=== PATIENT | male | born 1950 | race Caucasian/White ===

== ENCOUNTER → 2016-12-07 | Outpatient (CLI) | payer OTHER ==
[2016-12-07 09:51] LABS: Blood Urea Nitrogen 17 mg/dL (9-20); Non-African American GFR(MDRD) >60 (>60 ml/min/1.73 sqM)
--- NOTE | 2016-12-07 14:07 | MR ---
MR right brain and internal auditory canals with and without contrast HISTORY: Acoustic nerve disorder, hearing loss left ear Multiplanar multisequence and postcontrast images obtained through the brain and internal auditory ca nals following 20 cc MultiHance IV, small [id number] high-resolution images were obtained No comparisons There is no restricted diffusion. Scattered hyperintensities are present within the deep white matter on inversion recovery and T2-weighted sequences, approximately 5-10 lesions are present. Extensive s inus disease is present within the ethmoid air cells, right maxillary sinus shows air-fluid level, mu coperiosteal thickening present within the bilateral maxillary sinuses, frontal sinus. There is no he morrhage or hydrocephalus. Corpus callosum, pituitary, cervical medullary junction are normal. There is a mass in the internal auditory canal which is isointense on T1 and T2-weighted sequences, e xtensive homogenous enhancement is present on postcontrast images involving the intracanalicular port ion of the internal auditory canal extending to the cerebellopontine angle, the mass measures approxi mately 16 x 2.3 x 1.8 cm. The right cerebellopontine angle and internal auditory and general internal medicine physician y canal are normal. 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 Sinus disease. Nonspecific white matter demyelin ation. A Yellow message has been communicated to [employer] [facility] via the [employer] system on 12/07/2016 2:04 PM, Message ID [id number].
== END | disposition home or self-care (01) ==
LOC: RADMRIMAIN 08:47
PROVIDERS: ATTEND Otolaryngology
DX: D33.3 Benign neoplasm of cranial nerves (principal)
CPT/HCPCS: 82565; 84520; 70553; A9577

== ENCOUNTER → 2018-07-06 | Outpatient (CLI) | payer MEDICARE, OTHER ==
--- NOTE | 2018-07-06 13:14 | MR ---
EXAMINATION TYPE: MR brain and iac wo/w con DATE OF EXAM: 07/06/2018 COMPARISON: Prior brain MRI 12/07/2016 HISTORY: Benign Neoplasm of Cranial Nerves TECHNIQUE: Multiplanar, multisequence images of the brain and brainstem is performed without and with IV contras t, utilizing 13 mL intravenous Gadavist . Small [id number]-[id number] high-resolution images through the inte rnal auditory canals FINDINGS: Postop changes at the level of the temporal bone on the left are noted, fluid signal presen t within the mastoid air cells on inversion recovery T2-weighted sequences. Fat signal present along the temporal bone is likely postoperative on the left. The previously identified enhancing mass at th e left cerebellopontine angle is no longer present, cerebral spinal fluid signal is noted this level, the semicircular canals and cochlea no longer seen on the left. There are normal vascular flow voids . Diffusion weighted images demonstrate no evidence of a recent infarct or other diffusion abnormalit y. There is no extra-axial fluid collection or significant interval change in white matter signal ab normality. The ventricular system and cisternal spaces are normal in size and appearance. The brain volume is age appropriate. Midline structures demonstrate normal morphology, stable partially empty sella. The craniocervical j unction appears within normal limits. Post contrast images demonstrate no abnormal enhancement. The dural venous sinuses appear patent. The visualized sinuses are remarkable for inflammatory change in the ethmoid air cells, mucosal thickening present in the maxillary sinus, renal sinus. The globes are intact. IMPRESSION: Interval surgery and additional findings above.
== END | disposition home or self-care (01) ==
LOC: RADMRIMAIN 08:15
PROVIDERS: ATTEND Physician Assistant
DX: D33.3 Benign neoplasm of cranial nerves (principal); Z98.890 Other specified postprocedural states
CPT/HCPCS: 82565; 70553; 36415; A9585

== ENCOUNTER → 2018-11-15 | Outpatient (CLI) | payer MEDICARE ==
--- NOTE | 2018-11-15 09:21 | CTL ---
EXAMINATION TYPE: CT Low Dose Lung DATE OF EXAM ORDERED: 11/15/2018 HISTORY: 68-year-old male for small history of tobacco use. Lung cancer screening CT DLP: [address] CTDI: 2.87 mGy Automated exposure control for dose reduction was used. SCREENING VISIT: Baseline COMPARISON: None TECHNIQUE: Low dose computed tomography scan was performed through the chest at 1 mm thick sections and reconstructed images in the coronal/sagittal plane. Additional coronal MIP reconstructions performed. CT DIAGNOSTIC QUALITY: Limited, but interpretable FINDINGS: Excessive malaise artifacts relating to patient body habitus. Heart normal size without pericardial effusion. Large caliber to the main right and left pulmonary arteries at 2.7 and 2.5 cm, respectively, suggesting underlying pulmonary arterial hypertension. No thoracic lymphadenopathy by CT size criteria. Mild to moderate diffuse bronchial wall thickening. Scattered centrilobular emphysema. Some focal irregular nodular thickening at 7 mm along the anterior minor fissure (axial image 155) suspected represents scarring. Otherwise, no suspicious pulmonary nodule is identified. No consolidation or effusion. Tiny hernia suggested. Visualized upper abdomen is very limited due to the degree of ileus. Bridging anterior endplate spondylosis throughout the thoracic spine with accentuated lower thoracic kyphosis. Findings suggest DISH. IMPRESSION: 1. LungRADS Category 3 (probably benign, 1-2% chance of malignancy); 7 mm irregular nodular thickening anterior right minor fissure suspected to represent scarring. 2. COPD with mild emphysema. 3. Pulmonary arterial hypertension. 4. DISH. RECOMMENDATION: 1. 6 month follow-up low-dose CT chest to reassess the right lung finding. 2. Smoking cessation. FOLLOW UP CT CHEST RECOMMENDATION: [address] LUNG RAD: Lung-Rad 3 Probably Benign MTDD
== END ==
LOC: RADCTMAIN 08:02
PROVIDERS: ATTEND Family Medicine
DX: Z12.2 Encounter for screening for malignant neoplasm of respiratory organs (principal); J43.9 Emphysema, unspecified; I27.21 Secondary pulmonary arterial hypertension; F17.210 Nicotine dependence, cigarettes, uncomplicated

== ENCOUNTER → 2021-07-20 | Outpatient (CLI) | payer MEDICARE ==
--- NOTE | 2021-07-20 11:37 | CT ---
EXAMINATION TYPE: CT angio abd aorta w/Runoff DATE OF EXAM: 07/20/2021 COMPARISON: None. HISTORY: pad. Right lower extremity pain. CT DLP: 1566 mGycm, Automated Exposure Control for Dose Reduction was Utilized. CONTRAST: CTA scan of the abdomen and pelvis with lower extremity runoff is performed without oral and with IV Contrast, patient injected with 125 mL of Isovue 370. Three-D reconstructed images are created on an independent workstation and reviewed. FINDINGS: Vascular: Moderate peripheral calcified plaque in the abdominal aorta extends into branch vessels. Th ere is a patent celiac artery and SMA without significant stenosis. Patent bilateral renal arteries w ithout significant stenosis. Patent ESTEFANÍA. Abdominal aorta is somewhat small caliber measuring 1.6 cm r eference axial image 31. Moderate to severe peripheral calcified plaque extends into the common iliac arteries bilaterally without significant stenosis. Mild peripheral calcified plaque in the external iliac arteries bilaterally without significant signal. Satisfactory bifurcation common femoral arteries bilaterally with mild peripheral plaque. There is co mplete occlusion of the proximal right superficial femoral artery abruptly beginning on axial image 9 1 with some reconstitution mid to distal segment axial image 126. There is moderate to severe mixed p laque in the proximal to mid popliteal artery without focal stenosis. Less prominent plaque below kne e joint is seen. Satisfactory bifurcation and subsequent trifurcation is present with good three-vess el flow mid leg and good two-vessel flow distal leg level. At The distal leg/ankle joint there is sub optimal opacification of the small arteries bilaterally making evaluation suboptimal from this level distally. There is mild to moderate peripheral calcified plaque along the left proximal to mid superficial femo ral artery with more prominent plaque in the distal left superficial femoral artery. There is focal 1 .6 cm aneurysm axial image 144 with anterior noncalcified plaque. Distal to this popliteal artery rony ws focal eccentric 2.7 cm thrombosed aneurysm axial image 163 without significant stenosis just proxi mal to the knee joint. Remainder of popliteal artery shows no significant plaque or stenosis. Satisfa ctory bifurcation and trifurcation. Satisfactory three-vessel flow symmetric drops it right side and good 2 vessel flow distal left buttocks symmetric opposite right side. LUNG BASES: No significant abnormality is appreciated. LIVER/GB: No significant abnormality is appreciated. PANCREAS: No significant abnormality is seen. SPLEEN: No significant abnormality is seen. ADRENALS: No significant abnormality is seen. KIDNEYS: No significant abnormality is seen. BOWEL: No significant abnormality is seen. PROSTATE/SEMINAL VESICLES: Suboptimal evaluation due to streak artifact from bilateral hip arthroplas ty. LYMPH NODES: No greater than 1cm abdominal or pelvic lymph nodes are appreciated. OSSEOUS STRUCTURES: With metallic artifact from bilateral hip arthroplasty causes streak artifact jolley iting evaluation of pelvic structures. Moderate multilevel spurring in the lumbar spine facet arthrop athy lower lumbar levels. OTHER: There is anterior subcutaneous oval 3.8 x 5.8 cm thin-walled cyst abutting the skin surface in the pelvis axial image 67. Suspect benign dermatologic etiology such as sebaceous cyst. Correlate c linically. Lower extremities: Tricompartment degenerative changes of bilateral knees greatest patellofemoral c ompartments. Mild to moderate subcutaneous edema in the bilateral lower extremities below the knees more prominent on the right side versus left side. IMPRESSION: 1. Small caliber abdominal aorta. Abrupt complete occlusion upper level of the proximal right superfi cial femoral artery with some reconstitution distal superficial femoral artery level. No significant focal stenosis passes level nearly up to ankle joint identified. Asymmetric increase subcutaneous moreno ma soft tissue swelling of the distal right lower extremity versus the opposite left side noted. 2. No significant focal stenosis in the left lower extremity arterial system. There are 2 focal aneur ysms in the distal superficial femoral and popliteal artery that are however noted.
== END | disposition home or self-care (01) ==
LOC: RADCTMAIN 08:43
PROVIDERS: ATTEND Surgery
DX: I74.3 Embolism and thrombosis of arteries of the lower extremities (principal); I72.4 Aneurysm of artery of lower extremity
CPT/HCPCS: 82565; 84520; 75635; 36415; Q9967

== ENCOUNTER 2021-12-29 11:47 | Emergency (ER) | payer MEDICARE ==
--- NOTE | 2021-12-29 13:19 | XR ---
EXAMINATION TYPE: XR tibia fibula LT DATE OF EXAM: 12/29/2021 CLINICAL HISTORY: pain TECHNIQUE: AP and lateral images of the left tibia and fibula are obtained. COMPARISON: None. FINDINGS: Virtually nondisplaced hairline fracture involving the proximal fibular diaphysis. No addit ional fractures seen within the empqc-on-soid. Proximal tibial bony protuberance may reflect an exost osis. The joint spaces appear within normal limits. 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 IMPRESSION: Nondisplaced hairline fracture proximal fibula.
[2021-12-29 13:22] VITALS: TEMP 98.9
--- NOTE | 2021-12-29 13:35 | ED ---
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 Patient fell onto his left leg from standing on the 16 last week. Has been having some pain lateral to the left knee since. Presented to urgent care for evaluation, and x-ray there was read by staff and there was concern for tib-fib fracture of the left. Was sent here for further evaluation. Patient ambulates by himself as well as with a walker at baseline. Endorses mild left ankle pain, but no sensory deficits or weakness. Still able to move the left knee. Presents for further evaluation at this time. - Related Data Allergies Allergy/AdvReac Type Severity Reaction Status Date / Time No Known Allergies Allergy Verified 12/29/21 13:22 Review of Systems ROS Statement: Those systems with pertinent positive or pertinent negative responses have been documented in the HPI. Review of Systems: CONST: Denies fever EYES: Denies blurry vision ENT: Denies nasal congestion C/V: Denies Chest pain RESP: Denies shortness of breath GI: Denies abdominal pain : Denies dysuria SKIN: Denies rash. MSK: Endorses left leg pain. NEURO: Denies headache ROS Other: All systems not noted in ROS Statement are negative. Past Medical History Past Medical History: COPD History of Any Multi-Drug Resistant Organisms: None Reported Past Surgical History: Joint Replacement Additional Past Surgical History / Comment(s): left hip repleacement 2005, right hip- 2006. acoustic neuroma tumor removed 2017, rt hip replacement- 09/2019. Past Psychological History: Depression Smoking Status: Former smoker Past Alcohol Use History: Daily Past Drug Use History: Marijuana General Exam - General Exam Comments Initial Comments: General: Appears in no acute distress. HEAD: Normal with no signs of head trauma. EYES: PERRLA, EOMI, conjunctiva normal, no discharge. ENT: Hearing grossly intact, normal oropharynx. RESPIRATORY: Clear breath sounds bilaterally. No wheezes, rales, or rhonchi. C/V: Regular rate and rhythm. S1 and S2 auscultated, no edema, peripheral pulses 2+ and intact throughout ABD: Abd is soft, nontender, nondistended EXT: Normal range of motion, no obvious deformity. Tenderness to palpation over the proximal aspect of the left fibula. Normal range of motion of the left knee, ankle. Neurovascular intact throughout. SKIN: No rashes or lesions observed on exposed skin. NEURO: Alert and oriented 4. No focal sensory strength deficits. Able to ambulate. Limitations: no limitations Course Vital Signs 12/29/21 12/29/21 13:11 15:12 Temperature 98.9 F Pulse Rate 54 L 56 L Respiratory 20 18 Rate Blood Pressure 136/68 131/84 O2 Sat by Pulse 98 96 Oximetry Medical Decision Making - Medical Decision Making Abdomen the patient's presentation and physical exam, and concern for traumatic injury the patient's left leg. We repeated the patient's tib-fib x-ray which revealed no tibia fracture, confirmed with the radiologist as the patient appears to have an exocytosis which was mistaken as a possible fracture by the outpatient urgent care provider. Patient does have a hairline, nondisplaced fracture the proximal fibula, left. 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 Patient was given a [place] for his pain, however the fall and suspected injury occurred 6 days ago. I spoke with Dr. Das cardiovascular over the phone and patient can follow-up with him outpatient for the arterial aneurysm. I spoke with the patient who actually has already followed up with the primary regarding this, and will follow-up with him in the office of his normal scheduled appointment. I also spoke with Dr. Guillen of orthopedic was in agreement with the plan for follow-up in the immobilizer. He was placed in a knee immobilizer. I discussed this with the patient he was in agreement this plan. He already has Columbia at home for pain. Is in agreement with the plan for follow-up. I instructed the patient to follow up with their PCP in the next 3 days. I provided contact information for follow up with orthopedic surgery. I explained that the patient should return to the emergency department if they experience any worsening symptoms. Strict return precautions were discussed with the patient. The patient expressed understanding of these instructions. I answered all questions that the patient had. The patient was discharged home in fair condition with their prescriptions and follow up information. Disposition Clinical Impression: Fracture of left proximal fibula Disposition: HOME SELF-CARE Condition: Fair Instructions (If sedation given, give patient instructions): Leg Fracture (ED) Additional Instructions: You have a fibula fracture. Wear the knee immobilizer and follow up with Orthopedic Surgery in 1-2 days. Is patient prescribed a controlled substance at d/c from ED?: No Referrals: Lucy Gonzáles DO [Primary Care Provider] - 1-2 days Nando Guillen DO [Doctor of Osteopathic Medicine] - 1-2 days Time of Disposition: 14:40
[2021-12-29] MEDS ORDERED: HYDROcodone/APAP 5-325MG 1 EACH TAB PO STA (13:58)
--- NOTE | 2021-12-29 14:10 | XR ---
EXAMINATION TYPE: XR ankle complete LT DATE OF EXAM: 12/29/2021 COMPARISON: NONE HISTORY: Pain TECHNIQUE: 3 views of the left ankle are submitted for evaluation. FINDINGS: There is no evidence for fracture or dislocation. Ankle mortise is intact. Soft tissues are within normal limits. IMPRESSION: 1. No evidence for acute fracture.
[2021-12-29 15:12] VITALS: BP 131/84; PULSE 56; RESP 18
== END 2021-12-29 15:12 | disposition home or self-care (01) ==
LOC: EC 11:47
DX: S82.832A Other fracture of upper and lower end of left fibula, initial encounter for closed fracture (principal); J44.9 Chronic obstructive pulmonary disease, unspecified; Z87.891 Personal history of nicotine dependence; W19.XXXA Unspecified fall, initial encounter
CPT/HCPCS: 73590; 73610; 99283; L1830

== ENCOUNTER 2022-04-06 08:14 | Day surgery (SDC) | payer MEDICARE ==
[2022-04-04 15:29] VITALS: BMI 38.7
--- NOTE | 2022-04-06 07:53 | P.GSCN ---
History of Present Illness Consult date: 04/06/22 History of present illness: CHIEF COMPLAINT: Colon screen HISTORY OF PRESENT ILLNESS: The patient is a 71-year-old male who presents for colon screen. Lower endoscopy was offered for further evaluation and management. PAST MEDICAL HISTORY: Please see list. PAST SURGICAL HISTORY: Please see list. MEDICATIONS: Please see list. ALLERGIES: Please see list. SOCIAL HISTORY: No illicit drug use FAMILY HISTORY: No reports of Crohn disease or ulcerative colitis. REVIEW OF ORGAN SYSTEMS: CONSTITUTIONAL: No reports of fevers or chills. PHYSICAL EXAM: VITAL SIGNS: Stable GENERAL: Well-developed pleasant in no acute distress. HEENT: No scleral icterus. Extraocular movements grossly intact. Moist buccal mucosa. NECK: Supple without lymphadenopathy. CHEST: Unlabored respirations. Equal bilateral excursions. CARDIOVASCULAR: Regular rate and rhythm. Distal 2+ pulses. ABDOMEN: Soft, nontender, nondistended. MUSCULOSKELETAL: No clubbing, cyanosis, or edema. ASSESSMENT: 1. Colon screen. PLAN: 1. Recommend proceeding with a lower endoscopy Past Medical History Past Medical History: COPD, Hyperlipidemia, Hypertension, Prostate Disorder, Sleep Apnea/CPAP/BIPAP, Thyroid Disorder, Vascular Disorder Additional Past Medical History / Comment(s): uses cpap,balance problems uses a cane-freq falls History of Any Multi-Drug Resistant Organisms: None Reported Past Surgical History: Joint Replacement Additional Past Surgical History / Comment(s): left hip repleacement 2005, right hip- 2006. left acoustic neuroma tumor removed 2017, rt hip replacement- 09/2019. Past Anesthesia/Blood Transfusion Reactions: No Reported Reaction Smoking Status: Former smoker - Past Family History Mother Family Medical History: Cancer Medications and Allergies Home Medications Medication Instructions Recorded Confirmed Type Atorvastatin [Lipitor] 80 mg PO HS 04/04/22 04/04/22 History Doxazosin [Cardura] 4 mg PO QAM 04/04/22 04/04/22 History FLUoxetine HCL [Sarafem] 60 mg PO QAM 04/04/22 04/04/22 History Hydrocodone/Acetaminophen 1 each PO BID PRN 04/04/22 04/04/22 History [Hydrocodone/Acetaminophen 7.5-325] Levothyroxine Sodium [Levoxyl] 225 mcg PO 0200 04/04/22 04/04/22 History Losartan Potassium [Cozaar] 100 mg PO QAM 04/04/22 04/04/22 History NIFEdipine XL [Procardia Xl] 30 mg PO QAM 04/04/22 04/04/22 History hydroCHLOROthiazide [Hydrodiuril] 25 mg PO DAILY 04/04/22 04/04/22 History Allergies Allergy/AdvReac Type Severity Reaction Status Date / Time No Known Allergies Allergy Verified 04/04/22 15:14
[~2022-04-06 08:14] MED LIST: LACTATED RINGERS 1,000 ML IV SCH; LIDOCAINE 1% (10MG/ML) FOR IV START INTRADERMA PRN
[2022-04-06 08:55] VITALS: TEMP 98.1
[2022-04-06] MEDS ORDERED: PROPOFOL 10 MG/ML 20 ML VIAL IV ONE (09:03)
[2022-04-06] MEDS ORDERED: fentaNYL (PF) 50 MCG/ML 50 ML VIAL ONE (09:03)
[2022-04-06] MEDS ORDERED: LIDOCAINE 2% INJ 20 MG/ML (2 ML VIAL) ONE (09:03)
--- NOTE | 2022-04-06 09:09 | P.GSHP ---
History of Present Illness H&P Date: 04/06/22 CHIEF COMPLAINT: Colon screen HISTORY OF PRESENT ILLNESS: The patient is a 71-year-old male who presents for colon screen. Lower endoscopy was offered for further evaluation and management. PAST MEDICAL HISTORY: Please see list. PAST SURGICAL HISTORY: Please see list. MEDICATIONS: Please see list. ALLERGIES: Please see list. SOCIAL HISTORY: No illicit drug use FAMILY HISTORY: No reports of Crohn disease or ulcerative colitis. REVIEW OF ORGAN SYSTEMS: CONSTITUTIONAL: No reports of fevers or chills. PHYSICAL EXAM: VITAL SIGNS: Stable GENERAL: Well-developed pleasant in no acute distress. HEENT: No scleral icterus. Extraocular movements grossly intact. Moist buccal mucosa. NECK: Supple without lymphadenopathy. CHEST: Unlabored respirations. Equal bilateral excursions. CARDIOVASCULAR: Regular rate and rhythm. Distal 2+ pulses. ABDOMEN: Soft, nontender, nondistended. MUSCULOSKELETAL: No clubbing, cyanosis, or edema. ASSESSMENT: 1. Colon screen. PLAN: 1. Recommend proceeding with a lower endoscopy Past Medical History Past Medical History: COPD, Hyperlipidemia, Hypertension, Prostate Disorder, Sleep Apnea/CPAP/BIPAP, Thyroid Disorder, Vascular Disorder Additional Past Medical History / Comment(s): uses cpap,balance problems uses a cane-freq falls History of Any Multi-Drug Resistant Organisms: None Reported Past Surgical History: Joint Replacement Additional Past Surgical History / Comment(s): left hip repleacement 2005, right hip- 2006. left acoustic neuroma tumor removed 2017, rt hip replacement- 09/2019. Past Anesthesia/Blood Transfusion Reactions: No Reported Reaction Smoking Status: Former smoker - Past Family History Mother Family Medical History: Cancer Medications and Allergies Home Medications Medication Instructions Recorded Confirmed Type Atorvastatin [Lipitor] 80 mg PO HS 04/04/22 04/06/22 History Doxazosin [Cardura] 4 mg PO QAM 04/04/22 04/06/22 History FLUoxetine HCL [Sarafem] 60 mg PO QAM 04/04/22 04/06/22 History Hydrocodone/Acetaminophen 1 each PO BID PRN 04/04/22 04/06/22 History [Hydrocodone/Acetaminophen 7.5-325] Levothyroxine Sodium [Levoxyl] 225 mcg PO 0200 04/04/22 04/06/22 History Losartan Potassium [Cozaar] 100 mg PO QAM 04/04/22 04/06/22 History NIFEdipine XL [Procardia Xl] 30 mg PO QAM 04/04/22 04/06/22 History hydroCHLOROthiazide [Hydrodiuril] 25 mg PO DAILY 04/04/22 04/06/22 History Allergies Allergy/AdvReac Type Severity Reaction Status Date / Time No Known Allergies Allergy Verified 04/06/22 08:48 Surgical - Exam Vital Signs Temp Pulse Resp BP Pulse Ox 98.1 F 68 18 148/65 96 04/06/22 08:54 04/06/22 08:54 04/06/22 08:54 04/06/22 08:54 04/06/22 08:54
--- NOTE | 2022-04-06 09:35 | P.PCN ---
Date of Procedure: 04/06/22 Description of Procedure: PREOPERATIVE DIAGNOSIS: Family history colon cancer, mother Personal history colon cancer Colonoscopy screening POSTOPERATIVE DIAGNOSIS: Tubular adenoma ascending colon Tubular adenoma sigmoid colon Sigmoid diverticulosis, few OPERATION: Colonoscopy to the ileocecal valve and appendiceal orifice, cecum Colonoscopy with hot snare polypectomy SURGEON: Lakshmi Cruz MD. ANESTHESIA: MAC. INDICATIONS: The patient is an 71-year-old male who presents family history of colon cancerand personal history of colon polyps. Last colonoscopy 15 years. Benefits and risks were described and informed consent was obtained. DESCRIPTION OF PROCEDURE: The patient had undergone Sutab prep. The patient had been brought into the operating room and laid in the left lateral decubitus position. After adequate intravenous sedation, the rectum was examined with 2% lidocaine jelly. The prostate was unremarkable. No external hemorrhoids were encountered. The rectal tone was within normal limits. No lesions were palpated in the rectal vault. An Olympus colonoscope was advanced until the cecum, ileocecal valve and appendiceal orifice were clearly viewed. The prep was good. Sigmoid diverticulosis few was encountered. Colonic polyps were found and removed. No evidence of focal colitis was found. Retroflexion of the scope demonstrated grade 2 internal hemorrhoids without active bleeding or inflammation. The colon was desufflated. The patient had tolerated the procedure well. Withdrawal time was over 6 minutes. FINDINGS: Aronchick preparation quality scale 2 (1-5) Internal hemorrhoids, grade 2 No external hemorrhoids, grade 4. No arteriovenous malformations. Sigmoid diverticulosis, few Removal of 2 polyps: - Snare polypectomy 20 cm from the anal verge, 5 mm tubulovillous adenoma polyp, sigmoid colon - Snare polypectomy ascending colon, 8 mm flat villous adenoma polyp. No focal colitis. RECOMMENDATIONS: Repeat colonoscopy 3 years, 2024 Plan - Discharge Summary Discharge Rx Participant: No New Discharge Prescriptions: Continue Hydrocodone/Acetaminophen [Hydrocodone/Acetaminophen 7.5-325] 1 each PO BID PRN PRN Reason: Pain Atorvastatin [Lipitor] 80 mg PO HS hydroCHLOROthiazide [Hydrodiuril] 25 mg PO DAILY FLUoxetine HCL [Sarafem] 60 mg PO QAM Doxazosin [Cardura] 4 mg PO QAM Levothyroxine Sodium [Levoxyl] 225 mcg PO 0200 Losartan Potassium [Cozaar] 100 mg PO QAM NIFEdipine XL [Procardia XL] 30 mg PO QAM Discharge Medication List Atorvastatin [Lipitor] 80 mg PO HS 04/04/22 [History] Doxazosin [Cardura] 4 mg PO QAM 04/04/22 [History] FLUoxetine HCL [Sarafem] 60 mg PO QAM 04/04/22 [History] Hydrocodone/Acetaminophen [Hydrocodone/Acetaminophen 7.5-325] 1 each PO BID PRN 04/04/22 [History] Levothyroxine Sodium [Levoxyl] 225 mcg PO 0200 04/04/22 [History] Losartan Potassium [Cozaar] 100 mg PO QAM 04/04/22 [History] NIFEdipine XL [Procardia XL] 30 mg PO QAM 04/04/22 [History] hydroCHLOROthiazide [Hydrodiuril] 25 mg PO DAILY 04/04/22 [History] Follow up Appointment(s)/Referral(s): Lakshmi Cruz MD [STAFF PHYSICIAN] - As Needed Patient Instructions/Handouts: Colorectal Polyps (GEN), Diverticulosis Diet (GEN), Diverticulosis (GEN) Activity/Diet/Wound Care/Special Instructions: Repeat colonoscopy in 3 years, 2024 Discharge Disposition: HOME SELF-CARE
[2022-04-06 09:46] VITALS: BP 139/66; PULSE 60; RESP 16
== END 2022-04-06 10:15 | disposition home or self-care (01) ==
LOC: ORWHC2ENDO 08:14
PROVIDERS: ATTEND Surgery Plastic and Reconstructive Surgery
DX: Z12.11 Encounter for screening for malignant neoplasm of colon (principal); D12.5 Benign neoplasm of sigmoid colon; D12.3 Benign neoplasm of transverse colon; K57.30 Diverticulosis of large intestine without perforation or abscess without bleeding; K64.1 Second degree hemorrhoids; Z86.010 Personal history of colon polyps; Z80.0 Family history of malignant neoplasm of digestive organs; N42.9 Disorder of prostate, unspecified; E07.9 Disorder of thyroid, unspecified; I10 Essential (primary) hypertension; E78.5 Hyperlipidemia, unspecified; J44.9 Chronic obstructive pulmonary disease, unspecified; G47.33 Obstructive sleep apnea (adult) (pediatric); F32.A Depression, unspecified; R26.9 Unspecified abnormalities of gait and mobility; Z96.643 Presence of artificial hip joint, bilateral; Z87.891 Personal history of nicotine dependence; Z79.899 Other long term (current) drug therapy; Z79.890 Hormone replacement therapy; Z98.890 Other specified postprocedural states; Z91.81 History of falling; Z80.9 Family history of malignant neoplasm, unspecified
CPT/HCPCS: 88305; 45385; J3010; J2704; J2001

== ENCOUNTER → 2022-06-08 | Outpatient (CLI) | payer OTHER ==
--- NOTE | 2022-06-09 05:59 | MR ---
EXAMINATION TYPE: MR brain and iac wo/w con DATE OF EXAM: 06/08/2022 COMPARISON: 07/06/2018 HISTORY: Post-op check up for acoustic neuroma surgery CONTRAST: Standard multiplanar, multisequence MRI departmental protocol images were obtained without contrast a nd with 13 mL intravenous Gadavist gadolinium contrast. There is mild cerebral atrophy. There is no mass effect or midline shift. No sign of intracranial hem orrhage. Sella turcica appears normal. Corpus callosum is intact. The brainstem is intact. Diffusion images show no sign of an acute infarct. There is slight enlargement of the left internal auditory canal on the thin sections through the post erior fossa. The right side acoustic nerve and vestibular nerve appear normal. Right-sided internal a uditory canal appears normal. 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 No pathologic enhancement. IMPRESSION: Postsurgical changes at the left internal auditory canal. No sign of recurrent tumor. No adverse ulloa ge compared to old exams
== END | disposition home or self-care (01) ==
LOC: RADMRIMAIN 17:23
PROVIDERS: ATTEND Otolaryngology
DX: D33.3 Benign neoplasm of cranial nerves (principal); G37.9 Demyelinating disease of central nervous system, unspecified; Z48.810 Encounter for surgical aftercare following surgery on the sense organs
CPT/HCPCS: 70553; A9585

== ENCOUNTER → 2022-06-24 | Outpatient (CLI) | payer OTHER ==
--- NOTE | 2022-06-24 13:56 | US ---
EXAMINATION TYPE: US carotid duplex BILAT DATE OF EXAM: 06/24/2022 COMPARISON: NONE CLINICAL HISTORY: H81.10 BENIGN PAROXYSMAL VERTIGO, UNSPECIFIED EAR. vertigo TECHNIQUE: Carotid duplex ultrasound examination. Indirect Doppler criteria was utilized. FINDINGS: EXAM MEASUREMENTS: RIGHT: Peak Systolic Velocity (PSV) cm/sec ----- Right CCA: 81.9 ----- Right ICA: 94.8 ----- Right ECA: 174 ICA/CCA ratio: 1.1 RIGHT: End Diastole cm/sec ----- Right CCA: 7.8 ----- Right ICA: 15.6 ----- Right ECA: 0.0 LEFT: Peak Systolic Velocity (PSV) cm/sec ----- Left CCA: 74.0 ----- Left ICA: 88.9 ----- Left ECA: 220.0 ICA/CCA ratio: 1.2 LEFT: End Diastole cm/sec ----- Left CCA: 12.8 ----- Left ICA: 20.6 ----- Left ECA: 0.0 VERTEBRALS (direction of flow): Right Vertebral: Antegrade Left Vertebral: Antegrade Rhythm: Normal READING SPECIALIST NOTES: Mild homogeneous plaque with no significant stenosis Grayscale images show mild to minimal peripheral plaque. No increased velocities identified in the in ternal carotid arteries bilaterally. IMPRESSION: No hemodynamically significant stenosis within either internal carotid artery. Criteria for Assigning % of Stenosis / Diameter reduction (Estimation based on the indirect measurements of the internal carotid artery velocities (ICA PSV). 1. Normal (no stenosis)=ICA PSV < 125 cm/s: ratio < 2.0: ICA EDV<40 cm/s. 2. Less than 50% stenosis=ICA PSV < 125 cm/s: ratio < 2.0: ICA EDV<40 cm/s. 3. 50 to 69% stenosis=ICA PSV of 125 to 230 cm/s: ration 2.0 ? 4.0: ICA EDV 40-100 cm/s. 4. Greater than 70% stenosis to near occlusion= ICA PSV > 230 cm/s: ratio > 4.0: ICA EDV > 100 cm/s. 5. Near occlusion= ICA PSV velocities may be low or undetectable: variable ratio and ICA EDV. 6. Total occlusion=unable to detect flow.
== END | disposition home or self-care (01) ==
LOC: RADUSWWP 10:41
DX: H81.11 Benign paroxysmal vertigo, right ear (principal)
CPT/HCPCS: 93880

== ENCOUNTER → 2022-12-16 | Outpatient (CLI) | payer MEDICARE ==
--- NOTE | 2022-12-16 18:24 | CA ---
Transthoracic Echo Report Name: Mir Phelan Age: 72 Gender: M : 1950 Exam Date: 12/16/2022 14:00 Exam Location: [facility] Ht (in): 72 Wt (lb): 288 Ordering Physician: Luyc Gonzáles DO Attending/Referring Phys: Malgorzata Salmeron NPC [employer] Ana Schroeder RDCS Procedure CPT: Indications: Z01.81 Cardiac Hx: Technical Quality: Fair Contrast 1: Total Dose (mL): Contrast 2: Total Dose (mL): MEASUREMENTS (Male / Female) Normal Values 2D ECHO LV Diastolic Diameter PLAX 4.0 cm 4.2 - 5.9 / 3.9 - 5.3 cm LV Systolic Diameter PLAX 2.4 cm IVS Diastolic Thickness 1.6 cm 0.6 - 1.0 / 0.6 - 0.9 cm LVPW Diastolic Thickness 1.5 cm 0.6 - 1.0 / 0.6 - 0.9 cm LV Relative Wall Thickness 0.8 RV Internal Dim ED PLAX 4.2 cm LVOT Diameter 2.4 cm LA Volume 98.7 cm??? 18 - 58 / 22 - 52 cm??? M-MODE Aortic Root Diameter MM 3.9 cm LA Systolic Diameter MM 4.1 cm LA Ao Ratio MM 1.1 AV Cusp Separation MM 1.0 cm DOPPLER AV Peak Velocity 171.3 cm/s AV Peak Gradient 11.7 mmHg AV Mean Velocity 120.1 cm/s AV Mean Gradient 6.4 mmHg AV Velocity Time Integral 42.0 cm LVOT Peak Velocity 127.2 cm/s LVOT Peak Gradient 6.5 mmHg LVOT Velocity Time Integral 33.3 cm LVOT Stroke Volume 149.9 cm??? LVOT Stroke Volume Index 60.3 ml/m??? LVOT Cardiac Index 3593.5 cm???/min???m??? AV Area Cont Eq vti 3.6 cm??? AV Area Cont Eq pk 3.3 cm??? MV Area PHT 3.7 cm??? Mitral E Point Velocity 117.6 cm/s Mitral A Point Velocity 104.0 cm/s Mitral E to A Ratio 1.1 MV Deceleration Time 203.0 ms MV E' Velocity 7.1 cm/s Mitral E to MV E' Ratio 16.7 TR Peak Velocity 190.9 cm/s TR Peak Gradient 14.6 mmHg Right Ventricular Systolic Press 19.3 mmHg FINDINGS Left Ventricle Moderately increased left ventricular wall thickness. Left ventricular cavity size normal. Normal left ventricular systolic function with no obvious regional wall motion abnormalities. Left ventricular ejection fraction is estimated at 55-60%. Right Ventricle Moderate right ventricular dilatation. Right ventricular systolic pressure within normal limits. Right Atrium Normal right atrial size. Left Atrium Severely increased left atrial volume. Mildly increased left atrial area. Mitral Valve Structurally normal mitral valve. Mitral valve thickened. Mitral annular calcification. Mild mitral regurgitation. Aortic Valve No aortic valve stenosis or regurgitation. Tricuspid Valve Structurally normal tricuspid valve. Mild tricuspid regurgitation. Pulmonic Valve Trace pulmonic regurgitation. Pericardium No pericardial effusion. Aorta Normal size aortic root and proximal ascending aorta. CONCLUSIONS Technically difficult study for interpretation Normal LV systolic function Previewed by: Dr. Thanh Edgar MD (Electronically Signed) Final Date: 16 December 2022 18:23
== END | disposition home or self-care (01) ==
LOC: RADECHMAIN 13:52
PROVIDERS: ATTEND Family Medicine
DX: Z01.818 Encounter for other preprocedural examination (principal)
CPT/HCPCS: 93306

== ENCOUNTER → 2023-09-18 | Outpatient (CLI) | payer MEDICARE ==
--- NOTE | 2023-09-18 18:06 | MR ---
EXAMINATION TYPE: MR cervical spine wo con DATE OF EXAM: 09/18/2023 COMPARISON: Radiograph 08/14/2023 HISTORY: 73-year-old male M47.812, M54.2, Neck pain, rt hand numbness TECHNIQUE: Multiplanar, multisequence images of the cervical spine were acquired without contrast. FINDINGS: No craniocervical junction abruptly, predental space widening, or prevertebral soft tissue swelling. Scattered mild to moderate facet and uncovertebral joint arthropathy is present. There is degenerative trace grade 1 anterolisthesis C3-C4. Remaining alignment is maintained. We note some edematous Modic type I endplate change towards the right C6-C7. No suspicious bone marro w replacement. There is mild to moderate multilevel degenerative disc disease with desiccated discs and disc osteoph yte complex formation. This impresses on the ventral thecal sac at C4-C5, C5-C6, and C6-C7 but withou t any significant spinal canal stenosis. Mild ligamentum flavum thickening C6-7. At C2-C3, mild facet arthropathy without canal or foraminal stenosis. C3-C4, moderate facet arthropathy with mild right neuroforaminal stenosis. No spinal canal stenosis. At C4-C5, broad-based posterior disc osteophyte complex with moderate uncovertebral joint and facet a rthropathy. Changes result in [id number] right neuroforaminal stenosis. Trace grade 1 anterolis thesis. Impression onto the ventral thecal sac without significant spinal canal stenosis. At C5-C6, broad-based disc osteophyte complex. Moderate facet and uncovertebral joint arthropathy is present. There is mild left greater than right neuroforaminal stenosis. No significant spinal canal s tenosis. At C6-C7, broad-based disc osteophyte complex along with mild ligamentum flavum thickening. This cont ributes to mild overall narrowing of the spinal canal. Abutment of the ventral cord without any cord flattening or cord compression. Moderate facet and uncovertebral joint arthropathy is present. Change s result in [id number] left neuroforaminal stenosis. At C7-T1, mild facet arthropathy without canal or foraminal stenosis. Normal course, caliber, and signal intensity of the cervical spinal cord. No prevertebral or paravertebral soft tissue abnormality seen. IMPRESSION: 1. Mild to moderate degenerative disc disease. Moderate multilevel facet and uncovertebral joint arth ropathy. Degenerative trace grade 1 anterolisthesis C3-C4. 2. Small amount of edematous Modic type I endplate change towards the right at C6-C7. 3. Mild overall spinal canal stenosis at C6/C7. No significant spinal canal stenosis or cord compress ion. 4. Variable mild to moderate neuroforaminal stenoses outlined above.
== END | disposition home or self-care (01) ==
LOC: RADMRIMAIN 12:59
PROVIDERS: ATTEND Orthopaedic Surgery
DX: M47.812 Spondylosis without myelopathy or radiculopathy, cervical region (principal); M50.31 Other cervical disc degeneration, high cervical region; M48.02 Spinal stenosis, cervical region; M43.12 Spondylolisthesis, cervical region; R60.9 Edema, unspecified
CPT/HCPCS: 72141

== ENCOUNTER → 2023-10-11 | Outpatient (CLI) | payer MEDICARE ==
[2023-10-11 09:56] VITALS: BP 113/68; PULSE 58; RESP 16; TEMP 98.8
--- NOTE | 2023-10-11 14:24 | P.PAINPG ---
PQRS Measure Charge Sheet Comment: HISTORY OF PRESENT ILLNESS: A 73 yr old male as a referral from [facility] presents today w severe and chronic nekc pain x 10 mo secondary to DDD, spondylosis and facet arthropathy without myelopathy for evaluation. Pt states pain level is provoked at 6 /10 in intensity, constant, localized in the lower cervical spine, predominantly axial, tingling in character w occasional shooting pain towards the RUE and hands. Pain is provoked by any movement. Pain is alleviated by PT x 3 wks which he is currently in, massage therapy monthly x 6 mo which he is currently in, chiropractic treatments q3 wks which he is currently in since 2021, medications (Garwood, Naproxen), repositioning and rest. Cervical disability score at 26. PMH: OA, COPD, Hyperlipidemia, HTN, BPH, CORTEZ, Hypothyroid Disorder, PVD PSH: L Hip Replacement (2005), R Hip Replacement (2006, 2019), Colonoscopy (2021), L Acoustic Neuroma Tumor Resection (2017) SH: Former tobacco user, No ETOH abuse, No illicit drug use FH: Mo- CA All: See list Meds: See list REVIEW OF ORGAN SYSTEMS: CONSTITUTIONAL: No fevers or chills. No recent weight loss. NEUROLOGICAL: + numbness and tingling along the distal extremities. No seizure disorders or headaches. MUSCULOSKELETAL: + pain PSYCHIATRIC: Denies current depression or suicidal thoughts. Physical Examinations : Constitutional : Cooperative , not in acute distress . Neurologic : Cranial nerve II to XII intact. No focal neurological deficits. Psychiatric : alert & oriented x 3. Matching mood & appropriate affect. Judgment & insight intact. Musculoskeletal : Cervical Spine Motor strength in the deltoid and biceps: Normal right side. Normal Left side Motor strength biceps and the wrist extensors: Normal right side . Normal left side Motor strength in the triceps muscle: Normal right side. Normal left side Deep tendon reflexes: Normal at the biceps. Normal at Brachioradialis. Normal at triceps Vertebral body tenderness to deep palpation over C7 Cervical facet loading test: positive bilaterally Spurling test: positive bilaterally C6- C7 Neck distraction test: positive bilaterally Lida sign: positive bilaterally Lumbar spine Motor strength lower extremities ,thigh and legs 5/5 Right side , 5/5 Left side Deep tendon reflexes : Normal Knee Jerk. Normal Ankle Jerk Vertebral body tenderness over Martin Test positive Lumbar facet Loading Test: positive Right / positive Left Range of motion of the lumbar spine F lexion 30 degrees, extension 10 degrees Straight Leg Raise test: Left/ Right positive at degree Zari test: positive right / positive left. Severe tenderness over the Sacroiliac joint on the Right / Left sides Gaenslen test: positive bilaterally Seated flexion test: positive bilaterally. Sacral spine : Severe tenderness over the Sacroiliac joint: right side / left side Range of motion: Flexion of the lumbar spine <60 degrees Range of motion: Extension of the lumbar spine <20 degrees Gaenslen's Test positive Zari test: positive right side / left side Thigh Thrust Test Sacral Thrust Test Imaging: Noncontrast of the cervical spine from 09/08/2023 reviewed Assessment/ Plan : Cervical DDD Recommendation of IRISH FITZPATRICK C6-C7 #1. May need a series of injections for optimal pain relief. Risks, benefits of procedure discussed and patient verbalized un derstanding. Admits to anti- coagulant use or medical history of diabetes. Protocol for discontinuation/ continuation of medications sagrario procedure discussed. All questions answered. I have spent greater than 30 minutes on patient care today. Dr Wells was available by phone for the evaluation of this patient. The time was used to review the medical records including relevant urine studies and Prescription history (MAPs), review of the available imaging, evaluation and examination of the patient, coordination of care with the medical staff and if applicable referring physicians, as well as creation of the medical record Home Medications: Ambulatory Orders Atorvastatin [Lipitor] 80 mg PO HS 04/04/22 Doxazosin [Cardura] 4 mg PO QAM 04/04/22 FLUoxetine HCL [Sarafem] 60 mg PO QAM 04/04/22 Hydrocodone/Acetaminophen [Hydrocodone/Acetaminophen 7.5-325] 1 each PO BID PRN 04/04/22 Levothyroxine Sodium [Levoxyl] 225 mcg PO 0200 04/04/22 Losartan Potassium [Cozaar] 100 mg PO QAM 04/04/22 NIFEdipine XL [Procardia XL] 30 mg PO QAM 04/04/22 hydroCHLOROthiazide [Hydrodiuril] 25 mg PO DAILY 04/04/22 Controlled Substance Measures - Controlled Substance Measures Is patient prescribed a controlled substance at discharge?: No
== END ==
LOC: PNWHC3 08:04
PROVIDERS: ATTEND Specialist
DX: M50.123 Cervical disc disorder at C6-C7 level with radiculopathy (principal); M47.22 Other spondylosis with radiculopathy, cervical region; M19.90 Unspecified osteoarthritis, unspecified site
CPT/HCPCS: 99202

== ENCOUNTER 2023-10-19 07:10 | Day surgery (SDC) | payer MEDICARE ==
[2023-10-19] MEDS ORDERED: LACTATED RINGERS 1,000 ML IV SCH (07:46)
[2023-10-19 07:55] LABS: Glucose,Whole Blood 113 mg/dL (70-110)
[2023-10-19 08:05] VITALS: RESP 16; TEMP 98
[2023-10-19] MEDS ORDERED: DEXAMETHASONE SOD PHOSPHATE 10 MG/ML 1 ML VIAL ONE (08:30)
[2023-10-19] MEDS ORDERED: IOPAMIDOL M200 10 ML VIAL ONE (08:30)
--- NOTE | 2023-10-19 08:48 | P.PCN ---
Date of Procedure: 10/19/23 Procedure(s) Performed: PREOPERATIVE DIAGNOSIS: 1-Cervical radiculopathy . 2-cervical foraminal stenosis. 3-cervical degenerative disc disease. 4-cervical spondylosis with cervical facet arthropathy POSTOPERATIVE DIAGNOSIS: Same as preoperative diagnoses. PROCEDURE 1. Transforaminal epidural steroid injection under fluoroscopic guidance at right C6-7 level. (Fluoroscopy images stored on file in the radiology Department ) 2-cervical epidurogram. ANESTHESIA: Local with 1% lidocaine 3 ml . EBL: Minimal PROCEDURE INDICATION: The patient with severe neck pain and radiculopathy to the upper extremity , the symptoms unresponsive to conservative treatment. PROCEDURE DESCRIPTION / TECHNIQUE: The patient was seen and identified in the preoperative area. Risks, benefits, complications, and alternatives were discussed with the patient. The patient agreed to proceed with the procedure and signed the consent. IV was started, and vital signs were stable. Patient was taken to the OR and time out was completed. The patient was placed in the Lateral position on procedure table ( right side up ). The cervical area was prepped and draped in the usual sterile fashion. Critical pause was taken. Vital signs were closely monitored during the procedure. Using oblique fluoroscopy, the Right C6-7 level was identified, in the lateral view , the skin and deeper tissues just below was localized with 1% lidocaine. Subsequently, a 22-gauge 3.5-inch spinal needle was advanced under a tunneled view fluoroscopic guidance just underneath the foraminotomy of at the right C6-7 Under lateral fluoroscopy, the needle was then advanced to the posterior border of the interforaminal space. After negative aspiration of CSF and blood and with no paresthesias, 1 mL Isovue 200 contrast dye was injected excellent epidurogram , 2 mL of block solution containing 20 mg Dexamethasone and 1 mL of 0.9% normal saline PF was injected. Needle was removed . At the end of the procedure, skin was cleansed, and bandages were applied. COMPLICATIONS:none DISPOSITION / PLANS: The patient was placed in a supine position and transferred to the recovery area in a stable condition for observation. There was no evidence of lower extremity motor or sensory deficit after the procedure. Patient was discharged from the recovery room after meeting discharge criteria. Home discharge instructions were given to the patient by the staff. The patient was reexamined prior to discharge. note= patient was scheduled to have bilateral transforaminal epidural steroid injection at C6-7 in the preop holding area patient reported that he has no pain on the left side and only his pain on the right side for this reason we did the right side transforaminal steroid injection at C6-7 level
--- NOTE | 2023-10-19 09:01 | FL ---
Fluoroscopy History: BERNIE Fl time= 27.5 s DAP= [id number] mGym2
[2023-10-19 09:28] VITALS: BP 128/69; PULSE 61
== END 2023-10-19 09:30 | disposition home or self-care (01) ==
LOC: ORPAIN 07:10
PROVIDERS: ATTEND Specialist
DX: M47.22 Other spondylosis with radiculopathy, cervical region (principal); M48.02 Spinal stenosis, cervical region; E11.9 Type 2 diabetes mellitus without complications
CPT/HCPCS: 64479; J1100; Q9966; 62321

== ENCOUNTER → 2023-11-09 | Outpatient (CLI) | payer MEDICARE ==
--- NOTE | 2023-11-09 08:23 | P.PAINPG ---
Subjective Progress Note Date: 11/09/23 Principal diagnosis: neck pain, and radiating to right upper extremity with numbness Mr. Phelan is a 73 -year-old pleasant male came to the [facility] pain clinic for postprocedure evaluation . Patient has ongoing pain for many years. Patient describes pain is aching, throbbing, constant type of pain. Pain is radiating to right upper extremity causing numbness, and tingling sensation. Patient rated pain levels are 3-4 out of 10 in severity. with the help of intervention procedure his numbness improved to 40% in his right upper extremity. His pain levels are tolerable. Activities making pain worse. Medications, resting, intervention procedure helping in relieving patient's pain. Patient pain some days better than others. Overall activities decreased secondary to pain. Because of the pain sometimes patient is feeling lack of sl eep, interest, and energy. Denied any side effects with the medications. Denied any bowel or bladder problems at this time. he is using walker for walking support. Patient denies any suicidal or homicidal ideations intent or plan. Patient denies any auditory or visual hallucinations. Patient denied any red flag symptoms related to pain. 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 Sensation grossly intact Lower extremity: Normal strength, and decreased range of motion secondary to pain Cervical spine: Paravertebral tenderness: Positive on right side Cervical spine facet test : Positive Cervical spine Spurling test: positive on right side - Constitutional Constitutional Comment(s): 12 point review of symptoms negative except as mentioned in the history of present illness Assessment and Plan Assessment: cervical spondylosis without myelopathy Cervical radiculopathy- right-sided Cervical myofascial pain syndrome Plan: #1 Diagnoses, prognosis, and multiple treatment options including but not limited to physical therapy, interventional therapy, adjunct medication therapy, narcotic medication, and surgical options were discussed with the patient. And all questions were answered to the patient's satisfaction. #2 treatment plan agreement : Patient was thoroughly discussed regarding the treatment options, alternatives, and importance of exercises as tolerated. Patient clearly understood. #3 Patient was counseled on importance of regular exercise. Including brayan chi, aerobic exercises as tolerated. Which helps for chronic pain, and overall well- being. #4 investigations: MAPS- reviewed , urine drug test- none none #5 diagnostic tests: none #6 consultation :none # 7 interventional procedures:cervical right-sided C6-C7 epidural steroid injection #2. Procedure, complications, alternatives discussed with the patient. #8 medications none from the pain clinic #9 morphine milligrams equivalents dose ( MME) per day:0 # 10 disposition: scheduled to follow up with pain clinic in 8weeks duration. Time with Patient: Less than 30 PQRS Measure Charge Sheet Measure #130: Documentation of Current Meds in Medical Chart: Patient's medications documented in chart Measure #226: Tobacco Use: Screen & Cessation Intervention: Pt screened for tobacco use AND intervention given Measure #111: Pneumonia Vaccination: Pneumococcal vaccine administered or previously received Measure #47: Advance Care Plan: Advance care planning discussed & documented, plan or surrogate given Measure #412: Opioid Treatment Agreement: No documentation of signed opioid treatment agreement Measure #408: Opioid Therapy Follow-up Evaluation: Patient had NO f/u eval minimum every 3 months during opioid therapy Measure #317: Preventitive Care & Scrn High Bld Press & F/U: Pre-hypertensive or hypertensive BP documented, pt will f/u with PCP Measure #128: Body Mass Index (BMI) Screening & Follow-up: BMI documented ABOVE normal parameters - f/u documented Measure #131: Pain Assessment & Follow-up: Pain positive & plan documented Measure #431: Unhealthy Alcohol Use Preventative Care & Scrn: Patient not identified as an unhealthy alcohol user PQRS Narrative: Hx Alcohol Use (MH) No Home Medications: Ambulatory Orders Atorvastatin [Lipitor] 80 mg PO HS 04/04/22 FLUoxetine HCL [Sarafem] 60 mg PO QAM 04/04/22 Hydrocodone/Acetaminophen [Hydrocodone/Acetaminophen 7.5-325] 1 each PO BID PRN 04/04/22 Levothyroxine Sodium [Levoxyl] 225 mcg PO 0200 04/04/22 Losartan/Hydrochlorothiazide [Losartan-Hctz 100-25 mg Tab] 1 each PO DAILY 10/17/23 Unk Inhaler 1 puff INHALATION DIRECTED PRN 10/17/23 Unk Multi Vitamin 1 tab PO DAILY 10/17/23 Unk Vitamin E 1 tab PO DAILY 10/17/23 metFORMIN HCL [Metformin HCl] 500 mg PO BID 10/17/23 Controlled Substance Measures - Controlled Substance Measures Is patient prescribed a controlled substance at discharge?: No
[2023-11-09 10:08] VITALS: BP 155/73; PULSE 70; RESP 16; TEMP 97.8
== END ==
LOC: PNWHC3 07:55
DX: M79.18 Myalgia, other site (principal); M47.22 Other spondylosis with radiculopathy, cervical region; G89.29 Other chronic pain; M79.601 Pain in right arm; Z71.82 Exercise counseling
CPT/HCPCS: 99211

== ENCOUNTER → 2023-11-21 | Day surgery (SDC) | payer MEDICARE ==
[~2023-11-21] MED LIST changes: +DEXAMETHASONE SOD PHOSPHATE 10 MG/ML 1 ML VIAL ONE; +IOPAMIDOL M200 10 ML VIAL ONE; -LIDOCAINE 1% (10MG/ML) FOR IV START INTRADERMA PRN
[2023-11-21 07:32] LABS: Glucose,Whole Blood 144 mg/dL (70-110)
[2023-11-21 07:35] VITALS: RESP 16; TEMP 96.6
--- NOTE | 2023-11-21 08:06 | P.PCN ---
Date of Procedure: 11/21/23 Description of Procedure: PROCEDURE 1. Cervical epidural steroid injection under fluoroscopic guidance, C6-C7 2. Cervical epidurogram. PREOPERATIVE DIAGNOSIS: Cervical radiculopathy POSTOPERATIVE DIAGNOSIS: Cervical radiculopathy Imaging: Fluoroscopy was used, images where saved to the medical record ANESTHESIA: local only PROCEDURE DESCRIPTION / TECHNIQUE: The patient was seen and identified in the preoperative area. Risks, benefits, and alternatives were discused with the patient and the patient has consented to the procedure. Risks of the procedure include potential for bleeding, infection, nerve damage, and incomplete pain relief were discussed with the patient. All questions were answered for the patient Patient was taken to the OR and time out was completed. The patient was placed in the prone position on the procedure table. A pillow was placed under the patients chest to increase the cervical interlaminar space. The cervical area was prepped and draped in the usual sterile fashion. Vital signs were closely monitored during the procedure. Using anterior-posterior fluoroscopy, the C6-C7 interlaminar space was identified and the skin over this site was marked and then infiltrated with 1% lidocaine subcutaneously. Subsequently, a 20-gauge 3-1/2-inch Tuohy epidural needle was inserted and advanced toward the epidural space by means of the [id number] technique and guided by AP and lateral fluoroscopy. The correct needle position in the epidural space was verified with the injection of 1 mL of the water soluble contrast dye Isovue-180 and observing an excellent epidurogram with the epidural spread of the dye, after negative aspiration for blood and CSF and in the absence of paresthesias. Again after negative aspirat ion, a mixture containing 10 mg Dexamethasone and 2 ml of preservative-free normal saline injected and a washout of epidurogram was seen. Needle was withdrawn intact, skin was cleansed, and bandages were applied. Complications: none. Disposition: patient was placed in supine position and transferred to the recovery room area in stable condition and there was no evidence of upper or lower extremity motor or sensory deficit after the procedure patient was discharged from recovery room after discharge criteria met and home discharge instructions was given by the staff and patient will follow with the pain as directed. I recommended that the patient undergo a nerve conduction study and EMG to evaluate for median nerve neuropathy in the right hand. I'm concerned given his muscle weakness and lack of muscle bulk in the thenar eminence and thumb. This will also help to determine if cervical epidural steroid injections are necessary to continue or if this is a distal median nerve problem.
[2023-11-21 08:24] VITALS: BP 122/70; PULSE 59
--- NOTE | 2023-11-21 08:25 | FL ---
EXAMINATION TYPE: FL guided pain mgmt statistic Intraoperative/procedural fluoroscopic services were provided. Total fluoroscopy time is 10.0 seconds with a total of 1 submitted images to PACS. Please s ee the operative/procedural note for further details. DAP: [id number] mGym2
== END ==
LOC: ORPAIN 06:54
PROVIDERS: ATTEND Hospitalist
DX: M54.12 Radiculopathy, cervical region (principal); E11.9 Type 2 diabetes mellitus without complications
CPT/HCPCS: 62321; J1100; Q9966

== ENCOUNTER → 2023-12-27 | Outpatient (CLI) | payer MEDICARE ==
--- NOTE | 2023-12-30 22:57 | CTL ---
EXAMINATION TYPE: CT Low Dose Lung DATE OF EXAM ORDERED: 12/27/2023 HISTORY: Current smoker. Lung cancer screening CT DLP: 122.[address] CTDI: 3.45 mGy Automated exposure control for dose reduction was used. SCREENING VISIT: Subsequent COMPARISON: 11/15/2018 TECHNIQUE: Low dose computed tomography scan was performed through the chest at 1 mm thick sections a nd reconstructed images in the coronal plane at [address] DIAGNOSTIC QUALITY: Limited, but interpretable FINDINGS: LUNG NODULES: Present, detailed below: There is a pleural-based density posterior lateral left lung base measuring 0.7 cm. Series 4 image 21 7 this is new from comparison LUNGS: COPD: Severity: None Fibrosis: Severity: None Lymph nodes: None Other findings: None RIGHT PLEURAL SPACE: Effusion: None Calcification: None Thickening: None Pneumothorax: None LEFT PLEURAL SPACE: Effusion: None Calcification: None Thickening: None Pneumothorax: None HEART: Other: Ascending thoracic aorta at the level the main pulmonary artery measures 3.8 cm. The main pul monary artery at the bifurcation measures 3.5 cm. Heart Size: Normal Coronary calcification: Mild Pericardial effusion: None OTHER FINDINGS: Upper abdomen: Normal Bony thorax: Normal Supraclavicular region: Normal IMPRESSION: Benign-appearing findings FOLLOW UP CT CHEST RECOMMENDATION: Follow-up CT chest [address] LUNG RAD: Lung-Rad 3 Probably Benign
== END | disposition home or self-care (01) ==
LOC: RADCTMAIN 09:51
PROVIDERS: ATTEND Family Medicine
DX: Z12.2 Encounter for screening for malignant neoplasm of respiratory organs (principal); F17.210 Nicotine dependence, cigarettes, uncomplicated
CPT/HCPCS: 71271

== ENCOUNTER → 2024-01-04 | Outpatient (CLI) | payer MEDICARE ==
[2024-01-04 14:30] VITALS: BP 123/66; PULSE 69; RESP 16
--- NOTE | 2024-01-04 14:56 | P.PAINPG ---
Objective - Vital Signs Vital signs: Vital Signs Temp Pulse 69 01/04/24 14:13 Resp 16 01/04/24 14:13 BP 123/66 01/04/24 14:13 Pulse Ox 93 L 01/04/24 14:13 FiO2 PQRS Measure Charge Sheet Mode of Arrival: Walker Comment: HISTORY OF PRESENT ILLNESS: A 73 yr old male presents today w severe and chronic neck pain x 10 mo secondary to DDD, spondylosis and facet arthropathy without myelopathy for evaluation s/p KEATON C6-C7 #2. Pt states he experienced 25% pain relief x 5 wks s/p procedure. Pt states pain level is provoked at 6 /10 in intensity, constant, localized in the lower cervical spine, predominantly axial, tingling in character w occasional shooting pain towards the RUE and hands. Pain is provoked by any movement. Pain is alleviated by PT x 4 wks in Oct 2023, massage therapy monthly x 6 mo which he is currently in, physician guided home exercise regimen every other day since Oct 2023, medications, repositioning and rest. Cervical disability score at 25. Interventional procedures include KEATON C6-C7 x2 Medications include [place], Naproxen REVIEW OF ORGAN SYSTEMS: CONSTITUTIONAL: No fevers or chills. No recent weight loss. NEUROLOGICAL: + numbness and tingling along the distal extremities. No seizure disorders or headaches. MUSCULOSKELETAL: + pain PSYCHIATRIC: Denies current depression or suicidal though ts. Physical Examinations : Constitutional : Cooperative , not in acute distress . Neurologic : Cranial nerve II to XII intact. No focal neurological deficits. Psychiatric : alert & oriented x 3. Matching mood & appropriate affect. Judgment & insight intact. Musculoskeletal : Cervical Spine Motor strength in the deltoid and biceps: Normal right side. Normal Left side Motor strength biceps and the wrist extensors: Normal right side . Normal left side Motor strength in the triceps muscle: Normal right side. Normal left side Deep tendon reflexes: Normal at the biceps. Normal at Brachioradialis. Normal at triceps Vertebral body tenderness to deep palpation over C7 Cervical facet loading test: positive bilaterally Spurling test: positive bilaterally C6- C7 Neck distraction test: positive bilaterally Lida sign: positive bilaterally Lumbar spine Motor strength lower extremities ,thigh and legs 5/5 Right side , 5/5 Left side Deep tendon reflexes : Normal Knee Jerk. Normal Ankle Jerk Vertebral body tenderness over Martin Test positive Lumbar facet Loading Test: positive Right / positive Left Range of motion of the lumbar spine Flexion 30 degrees, extension 10 degrees Straight Leg Raise test: Left/ Right positive at degree Zari test: positive right / positive left. Severe tenderness over the Sacroiliac joint on the Right / Left sides Gaenslen test: positive bilaterally Seated flexion test: positive bilaterally. Sacral spine : Severe tenderness over the Sacroiliac joint: right side / left side Range of motion: Flexion of the lumbar spine <60 degrees Range of motion: Extension of the lumbar spine <20 degrees Gaenslen's Test positive Zari test: positive right side / left side Thigh Thrust Test Sacral Thrust Test Imaging: Noncontrast of the cervical spine from 09/08/2023 reviewed Assessment/ Plan : Cervical DDD Recommendation of follow up w Dr Garber for possible EMG or to explore additional treatment options. All questions answered. I have spent greater than 30 minutes on patient care today. Dr Wells was available by phone for the evaluation of this patient. The time was used to review the medical records including relevant urine studies and Prescription history (MAPs), review of the available imaging, evaluation and examination of the patient, coordination of care with the medical staff and if applicable referring physicians, as well as creation of the medical record - Pain Location Bilateral Lower Neck Pharmacological Interventions: Epidural PQRS Narrative: Blood Pressure 123/66 Pain Intensity [Bilateral 4 Lower Neck] Scale Used Numeric (1 - 10) Hx Alcohol Use (MH) No Home Medications: Ambulatory Orders Atorvastatin [Lipitor] 80 mg PO HS 04/04/22 FLUoxetine HCL [Sarafem] 60 mg PO QAM 04/04/22 Hydrocodone/Acetaminophen [Hydrocodone/Acetaminophen 7.5-325] 1 each PO BID PRN 04/04/22 Levothyroxine Sodium [Levoxyl] 225 mcg PO 0200 04/04/22 Losartan/Hydrochlorothiazide [Losartan-Hctz 100-25 mg Tab] 1 each PO DAILY 10/17/23 Unk Inhaler 1 puff INHALATION DIRECTED PRN 10/17/23 Unk Multi Vitamin 1 tab PO DAILY 10/17/23 Unk Vitamin E 1 tab PO DAILY 10/17/23 metFORMIN HCL [Metformin HCl] 500 mg PO BID 10/17/23 Controlled Substance Measures - Controlled Substance Measures Is patient prescribed a controlled substance at discharge?: No
== END ==
LOC: PNWHC3 14:00
PROVIDERS: ATTEND Specialist
DX: M50.323 Other cervical disc degeneration at C6-C7 level (principal)
CPT/HCPCS: 99211